=== PATIENT | female | born 1980 | race Caucasian/White ===

== ENCOUNTER 2016-06-29 09:55 | Outpatient (CLI) ==
[2016-04-29 19:01] VITALS: BMI 30.1
--- NOTE | 2016-06-29 11:07 | MAMMO ---
EXAM: Digital diagnostic bilateral mammogram and left breast ultrasound HISTORY: Breast lump COMPARISON: None FINDINGS: Digital MLO and CC views of the right and left breast were performed. There are scattered fibrogla ndular densities. There are bilateral benign intramammary lymph nodes. There is no evidence for ma ss, asymmetry, distortion, or suspicious calcifications in either breast. Ultrasound left breast was performed in the areas of palpable abnormality, at the 4 o'clock, 6 o'aimee ck, and 10 o'clock position, as directed by the patient and clinician. No focal sonographic abnorma lity is identified. No mass or cyst identified. IMPRESSION: No mammographic evidence of malignancy in the right or left breast. Negative left breast ultrasound . Clinical follow-up recommended. BIRADS category 2, benign
== END 2016-06-29 09:56 | disposition home or self-care (01) ==
LOC: RAD 09:55
PROVIDERS: ATTEND Physician Assistant
DX: N63 Unspecified lump in breast (principal)

== ENCOUNTER 2016-07-01 19:30 | Emergency (ER) ==
[2016-07-01 19:30] VITALS: BMI 30.1
[2016-07-01 19:40] VITALS: BP 135/101; TEMP 97.5
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
== END 2016-07-01 20:05 | disposition home or self-care (01) ==
LOC: ED 19:30
DX: K04.7 Periapical abscess without sinus (principal)
CPT/HCPCS: 99282

== ENCOUNTER 2016-08-20 12:48 | Emergency (ER) ==
[2016-08-20 12:48] VITALS: BMI 30.1
[2016-08-20 12:59] VITALS: BP 127/86; TEMP 98.1
[2016-08-20] MEDS ORDERED: DECADRON 4 MG/ML SDV IM STA (14:47)
[2016-08-20] MEDS ORDERED: BENADRYL IM STA (14:47)
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
== END 2016-08-20 15:21 | disposition home or self-care (01) ==
LOC: ED 12:48
DX: R21 Rash and other nonspecific skin eruption (principal); L29.9 Pruritus, unspecified
CPT/HCPCS: 96372; 99282

== ENCOUNTER 2016-09-23 22:08 | Emergency (ER) ==
[2016-09-23 22:21] VITALS: BMI 29.5
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
--- NOTE | 2016-09-23 23:04 | DI ---
Exam: Right shoulder two-view History: Injury and pain Findings / impression: No bony or articular abnormality of the right shoulder. Normal exam.
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
[2016-09-23] MEDS ORDERED: TORADOL IM STA (23:17)
[2016-09-24 00:33] VITALS: BP 140/82; TEMP 98.1
== END 2016-09-23 23:58 | disposition home or self-care (01) ==
LOC: ED 22:08
DX: S20.219A Contusion of unspecified front wall of thorax, initial encounter (principal); V86.99XA Unspecified occupant of other special all-terrain or other off-road motor vehicle injured in nontraffic accident, initial encounter
CPT/HCPCS: 96372; 99283

== ENCOUNTER 2016-11-05 19:45 | Emergency (ER) ==
[2016-11-05 19:51] VITALS: BP 143/105; TEMP 98.8; BMI 29.4
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
== END 2016-11-05 20:11 | disposition home or self-care (01) ==
LOC: ED 19:45
DX: N75.0 Cyst of Bartholin's gland (principal)
CPT/HCPCS: 99282

== ENCOUNTER 2016-12-22 15:32 | Observation (INO) ==
[2016-12-22 16:04] LABS: BILIRUBIN,URINE 3+ (NEGATIVE); KETONES,URINE 2+ (NEGATIVE); LEUKOCYTE ESTERASE ,URINE 3+ (NEGATIVE); NITRITE,URINE Positive (NEGATIVE); PH,URINE 8.5 (5-9); PROTEIN,URINE 3+ (NEGATIVE); URINE, BLOOD 3+ (NEGATIVE)
[2016-12-22 16:05] LABS: BASOPHILS % (AUTO) 0.1 % (0.0-3.0); EOSINOPHILS # (AUTO) 0.1 K/ul (0.0-0.7); EOSINOPHILS % (AUTO) 0.6 % (0.0-7.0); HEMATOCRIT 38.4 % (37.0-47.0); HEMOGLOBIN 13.1 g/dl (12.0-16.0); IMMATURE GRANULOCYTE % (AUTO) 0.3 % (0.0-5.0); LYMPHOCYTES % (AUTO) 14.2 (10.0-50.0); MEAN CORPUSCULAR HGB CONC 34.1 (31.8-35.4); MONOCYTES # (AUTO) 0.8 K/uL (0.4-2.0); MONOCYTES % (AUTO) 6.1 (0-10); NEUTROPHILS # (AUTO) 10.9 K/ul (2.0-6.9); NEUTROPHILS % (AUTO) 78.7; PLATELET COUNT 294 10^3/uL (140-440); RED BLOOD COUNT 4.52 10^6/ul (4.20-5.40); WHITE BLOOD COUNT 13.85 K/ul (4.6-10.2)
[2016-12-22 16:07] LABS: ADD URINE MICROSCOPIC YES; URINE PREGNANCY INTERNAL QC INTERNAL QC VALID
[2016-12-22 16:21] LABS: PARTIAL THROMBOPLASTIN TIME 24.4 SEC (23.9-40.0); PROTHROMBIN TIME 10.2 SEC (9.3-11.0)
[2016-12-22 16:27] LABS: ALBUMIN 3.9 g/dL (3.4-5.0); ALBUMIN/GLOBULIN RATIO 1.26; ANION GAP 14.6; BILIRUBIN,TOTAL 0.46 mg/dL (0.00-1.20); BUN/CREATININE RATIO 8.97; CALCIUM 9.8 mg/dL (8.2-10.2); CREATININE 0.78 mg/dL (0.60-1.30); POTASSIUM 3.6 mmol/L (3.5-5.10)
--- NOTE | 2016-12-22 16:33 | CT ---
EXAM: CT abdomen and pelvis without contrast. HISTORY: Abdominal pain. TECHNIQUE: Multi-slice transaxial helical CT. Coronal and sagittal reformatons were performed. COMPARISON: CT chest 09/23/2016 FINDINGS: The heart is normal in size. The lung bases are clear. Evaluation of the solid organs is limited without IV contrast. The gallbladder has been removed. T he spleen is normal in size. No evidence of renal calculus or hydronephrosis is seen. No evidence of intrahepatic biliary ductal dilation is seen. The pancreas and adrenals appear grossly unremarka ble within the confines of a noncontrast exam. The bowel is not dilated. The urinary bladder and the uterus appear grossly unremarkable. No eviden ce of free fluid in the abdomen pelvis is seen. The appendix is not clearly identified. No dilated tubular structures in the right lower quadrant are seen. No retroperitoneal adenopathy is seen. Bi lateral L5 pars defects are present. There is minimal anterior listhesis of L5 and S1. IMPRESSION: 1. No acute abdominal findings. 2. No hydronephrosis, bowel obstruction, or intra-abdominal inflammation. 3. Appendix not clearly identified. No dilated tubular structure in the right lower quadrant is se en. 4. Bilateral L5 pars defects with minimal anterior listhesis of L5 on S1. 5. Cholecystectomy.
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
[2016-12-22] MEDS ORDERED: VANCOMYCIN 1 GM in SODIUM CHLORIDE 250 ML IV STA (16:52)
[2016-12-22] MEDS: SODIUM CHLORIDE 1,800 ML IV SCH (17:04)
[2016-12-22 18:53] VITALS: BMI 29.9
[2016-12-23] MEDS: SODIUM CHLORIDE 1,800 ML IV SCH ×2 (02:10→07:19)
[2016-12-23 04:45] LABS: BASOPHILS % (AUTO) 0.1 % (0.0-3.0); EOSINOPHILS # (AUTO) 0.2 K/ul (0.0-0.7); EOSINOPHILS % (AUTO) 2.2 % (0.0-7.0); HEMATOCRIT 35.1 % (37.0-47.0); HEMOGLOBIN 11.8 g/dl (12.0-16.0); IMMATURE GRANULOCYTE % (AUTO) 0.3 % (0.0-5.0); LYMPHOCYTES % (AUTO) 29.4 (10.0-50.0); MEAN CORPUSCULAR HEMOGLOBIN 28.7 pg (27.0-31.0); MEAN CORPUSCULAR HGB CONC 33.6 (31.8-35.4); MEAN CORPUSCULAR VOLUME 85.4 fl (81.0-99.0); MONOCYTES # (AUTO) 0.6 K/uL (0.4-2.0); MONOCYTES % (AUTO) 8.3 (0-10); NEUTROPHILS # (AUTO) 4.1 K/ul (2.0-6.9); NEUTROPHILS % (AUTO) 59.7; PLATELET COUNT 227 10^3/uL (140-440); RED BLOOD COUNT 4.11 10^6/ul (4.20-5.40)
[2016-12-23 05:05] LABS: ALBUMIN 3.2 g/dL (3.4-5.0); ALBUMIN/GLOBULIN RATIO 1.19; ANION GAP 12.6; BILIRUBIN,TOTAL 0.42 mg/dL (0.00-1.20); BUN/CREATININE RATIO 10.44; CALCIUM 8.5 mg/dL (8.2-10.2); CREATININE 0.67 mg/dL (0.60-1.30); POTASSIUM 3.6 mmol/L (3.5-5.10); TOTAL PROTEIN 5.9 g/dL (6.4-8.2)
[2016-12-23] MEDS: ZESTRIL PO SCH (08:21)
[2016-12-23] MEDS ORDERED: ROCEPHIN 1 GM in SODIUM CHLORIDE 100 ML IV ONE (08:22)
[2016-12-23] MEDS: SODIUM CHLORIDE 1,000 ML IV SCH ×3 (10:05→19:19)
[2016-12-23] MEDS: PYRIDIUM PO SCH ×2 (10:54→20:23)
[2016-12-23] MEDS: NORCO 5-325 PO PRN ×2 (10:54→20:37)
[2016-12-24 05:16] LABS: BASOPHILS % (AUTO) 0.2 % (0.0-3.0); EOSINOPHILS # (AUTO) 0.2 K/ul (0.0-0.7); EOSINOPHILS % (AUTO) 2.4 % (0.0-7.0); HEMATOCRIT 34.6 % (37.0-47.0); HEMOGLOBIN 11.8 g/dl (12.0-16.0); IMMATURE GRANULOCYTE % (AUTO) 0.3 % (0.0-5.0); LYMPHOCYTES # (AUTO) 2.6 K/uL (0.60-3.4); LYMPHOCYTES % (AUTO) 41.7 (10.0-50.0); MEAN CORPUSCULAR HEMOGLOBIN 29.6 pg (27.0-31.0); MEAN CORPUSCULAR HGB CONC 34.1 (31.8-35.4); MEAN CORPUSCULAR VOLUME 86.9 fl (81.0-99.0); MONOCYTES # (AUTO) 0.6 K/uL (0.4-2.0); MONOCYTES % (AUTO) 9.7 (0-10); NEUTROPHILS # (AUTO) 2.9 K/ul (2.0-6.9); NEUTROPHILS % (AUTO) 45.7; PLATELET COUNT 256 10^3/uL (140-440); RED BLOOD COUNT 3.98 10^6/ul (4.20-5.40); WHITE BLOOD COUNT 6.28 K/ul (4.6-10.2)
[2016-12-24 05:39] LABS: ALBUMIN 3.1 g/dL (3.4-5.0); ALBUMIN/GLOBULIN RATIO 1.15; ANION GAP 11.6; BILIRUBIN,TOTAL 0.2 mg/dL (0.00-1.20); BUN/CREATININE RATIO 11.26; CALCIUM 8.7 mg/dL (8.2-10.2); CREATININE 0.71 mg/dL (0.60-1.30); POTASSIUM 3.6 mmol/L (3.5-5.10); TOTAL PROTEIN 5.8 g/dL (6.4-8.2)
[2016-12-24] MEDS: ZESTRIL PO SCH (09:11)
[2016-12-24] MEDS: PYRIDIUM PO SCH (09:11)
[2016-12-24 09:55] VITALS: BP 101/65; TEMP 98.8
--- NOTE | 2016-12-24 13:18 | PN ---
DATE OF SERVICE: 12/23/16 SUBJECTIVE: The patient was admitted with a UTI yesterday. No fever. Still has suprapubic pain and the right lower back pain. No fever since admission. REVIEW OF SYSTEMS: CONSTITUTIONAL: No fever, no chills. HEENT: Normal. ENDOCRINE: No weight gain, no weight loss. CVS: No angina symptoms. No CHF symptoms. No palpitations. No atypical chest pain for CAD. No shortness of breath. No PND, no orthopnea. RESPIRATORY: No cough, no hemoptysis. GI: No nausea, no vomiting. No abdominal pain. : No hematuria. No polyuria. MUSCULOSKELETAL:. No joint swelling. PSYCHIATRIC: Not anxious. No depression. No suicidal thoughts. No homicidal thoughts. SKIN: Intact. No rash. PHYSICAL EXAMINATION: V/S: Blood pressure 116/72, respiratory 20, heart rate 81, temperature 97.9. HEENT: Normocephalic, atraumatic. Mucosa dry. Pallor positive. No icterus. NECK: Supple. No JVD, no carotid bruit. No lymphadenopathy. LUNGS: Clear to auscultation. No rales or rhonchi. HEART: S1, S2 normal. No S3. No murmur, gallop or regurgitation. ABDOMEN: Soft, Suprapubic tenderness present. Bowel sounds active. No rigidity. No rebound or guarding. Right and left CVA tenderness is present. EXTREMITIES: No clubbing, cyanosis or pedal edema. MUSCULOSKELETAL: No joint swelling. NEUROLOGIC: Awake, alert, oriented times three. No focal deficit. LYMPHATIC: No lymph nodes palpable. SKIN: Intact. LABS: WBC 6.90, hgb 11.8, hct 35.1, plt count 227, sodium 141, potassium 3.6, chloride 107, bicarb 25, BUN 7, creatinine 0.67. ASSESSMENT: 1. Acute pyelonephritis, questionable 2. UTI, organism gram negative rods. 3. DJD spine 4. Hypertension PLAN: 1. Rocephin 1 gram daily 2. IV fluids will decrease to 50 ml per hour 3. Followup on urine cultures. TIME SPENT: More than 30 minutes MTDD
--- NOTE | 2017-01-24 11:33 | HP ---
DATE OF SERVICE: 12/22/16 CHIEF COMPLAINT: Burning and frequency and urgency or urination, abdominal pain, back pain, nausea, fever and blood in the urine. Recently seen by the OBGYN for the bacterial vaginosis and Bartholin cyst. She was started on the Flagyl and it was getting better but now started with the burning and frequency or urination and back pain. She was seen by Emergency room physician Dr. Grady. Labs showed the left shift with the WBC of 13,000. PT INR was negative, CMP was negative. Urine was positive for the ketone, Nitrates positive, leukocyte esterase positive. CT of the abdomen and pelvis negative for the pyelonephritis but the patient did have CVA tenderness. At that time the patient was admitted to the hospital for the clinical diagnosis of acute pyelonephritis with left sided shift of the WBC and for IV fluids and IV hydration and antibiotics. REVIEW OF SYSTEMS: CONSTITUTIONAL: No fever, no chills. HEENT: Normal. ENDOCRINE: No weight gain; no weight loss. CVS: No chest pain. No PND, no orthopnea. No shortness of breath. No PND, no orthopnea. RESPIRATORY: No cough, no congestion. No hemoptysis. GI: No nausea, no vomiting. No abdominal pain. No melena. : No hematuria. No polyuria. MUSCULOSKELETAL: No joint swelling. PSYCHIATRIC: Not anxious. No depression. No suicidal thoughts. No homicidal thoughts. SKIN: Intact, no open lesions. 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 Family history is significant for the throat cancer and hypertension. MEDICATIONS: Lisinopril Hydrocodone Clonazepam ALLERGIES: Penicillin PHYSICAL EXAMINATION: V/S: Blood pressure 130/93, respiratory rate 20, heart rate 97, temperature 98.0. GENERAL: Sick looking lady laying in the bed and not in any distress. HEENT: Atraumatic, normocephalic. No scleral icterus. Mucosa dry. NECK: Supple. No JVD, no bruit. No lymphadenopathy. No thyromegaly. HEART: S1, S2 normal. No murmur. No cyanosis or clubbing. No ascites. LUNGS: Bilateral entry is decreased and clear to auscultation. No rales or rhonchi. ABDOMEN: Soft, nontender. Bowel sounds are active. Bilateral CVA tenderness. No rigidity or guarding. EXTREMITIES: No cyanosis, clubbing or pedal edema. MUSCULOSKELETAL: Normal joints, no swelling. NEUROLOGIC: The patient is awake and alert. SKIN: Intact; no open lesions. LYMPHATIC: No lymph nodes palpable. LABS: WBC 13.85, hgb 13.1, hct 38.4, plt count 294, sodium 141, potassium 3.6, chloride 103, bicarb 27, BUN 7, creatinine 0.78. Urine showed the ketones positive, nitrates positive and leukocyte esterase positive. ASSESSMENT: 1. Clinically the patient has pyelonephritis with the left shift of the white count 2. Hypertension 3. Dyslipidemia 4. DJD spine 5. Osteoarthritis 6. Anxiety 7. Depression PLAN: 1. Admit the patient to the regular floor 2. CBC and CMP today and daily 3. Cardiac enzymes and troponin 4. IV fluids 5. Rocephin 1 gram daily 6. Pyridium 7. Continue the blood pressure medication. TIME SPENT: MORE THAN 70 minutes MTDD
--- NOTE | 2017-01-24 11:57 | DS ---
DATE OF SERVICE: 12/24/16 FINAL DIAGNOSIS: 1. Bilateral pyelonephritis clinical 2. UTI, e-coli positive not ESBL 3. Hypertension 4. Dyslipidemia 5. DJD spine 6. Osteoarthritis 7. Anxiety disorder 8. Depression 9. History of colitis 10.Ovarian cyst removed 11. Tubal ligation DISCHARGE INSTRUCTIONS: Discharge the patient home. Please have followup with the primary care provider as sooner as possible. Please takes some Probiotics and over the counter Probiotic medication as antibiotics can give the diarrhea. Continue the rest of the home medications. MEDICATIONS AT DISCHARGE: Clonazepam Hydrocodone Lisinopril NEW PRESCRIPTIONS: Macrobid 100mg twice a day for 7 days DIET INSTRUCTIONS: Low Cholesterol ACTIVITY: As much as tolerated. SMOKING: Former smoker DISEASE SPECIFIC EDUCATION: Urinary tract infection Blood infection Antibiotics and diarrhea been discussed. HOSPITAL COURSE: Susan Smith who is a 36 year old female came to the emergency room with the burning, frequency of urination and nausea feeling, bilateral lower back pain. She was admitted with the clinical pyelonephritis. White count was left shift with 13,000. IV antibiotic Rocephin was started with the IV fluids and continued home medication of hydrocodone. Gradually the patient started feeling better, afebrile. Meanwhile the urine grew e-coli which was sensitive to all the antibiotics. By third day the patient was up and about walking and her lower back kwok in improved. At that time she is discharged home on the antibiotics Macrobid and advised to take the antibiotic and finish the course. She will followup in the [facility] with in 4-5 days. TIME SPENT: MORE THAN 55 MINUTES MTDD
== END 2016-12-24 11:50 | disposition home or self-care (01) ==
LOC: ED 15:32 → MEDSURG B 16:56 → INTOOBSV 16:56 → UNDOADMIN 16:56 → UNDODISIN 12-24 11:50
PROVIDERS: ADMIT Emergency Medicine; ATTEND Emergency Medicine
DX: N10 Acute pyelonephritis (principal); N39.0 Urinary tract infection, site not specified; M54.5 Low back pain; R10.30 Lower abdominal pain, unspecified; B96.20 Unspecified Escherichia coli [E. coli] as the cause of diseases classified elsewhere; I10 Essential (primary) hypertension; E78.5 Hyperlipidemia, unspecified; M47.9 Spondylosis, unspecified; M19.90 Unspecified osteoarthritis, unspecified site; F41.8 Other specified anxiety disorders; Z87.19 Personal history of other diseases of the digestive system; Z98.51 Tubal ligation status; Z79.899 Other long term (current) drug therapy; Z16.11 Resistance to penicillins
CPT/HCPCS: 36415; 74176; 80053; 81001; 81025; 85025; 85610; 85730; 87086; 87186; 99223; 99233; 99239; 99284

== ENCOUNTER 2017-06-06 17:28 | Emergency (ER) ==
[2017-06-06 17:38] VITALS: BP 137/93; TEMP 99.7; BMI 33.6
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
== END 2017-06-06 19:30 | disposition home or self-care (01) ==
LOC: ED 17:28
DX: S16.1XXA Strain of muscle, fascia and tendon at neck level, initial encounter (principal); M25.611 Stiffness of right shoulder, not elsewhere classified; V89.2XXA Person injured in unspecified motor-vehicle accident, traffic, initial encounter
CPT/HCPCS: 99282

== ENCOUNTER 2017-10-06 20:52 | Emergency (ER) | payer OTHER ==
[2017-10-06 21:07] VITALS: BP 123/81; TEMP 99.1; BMI 35.4
[2017-10-06] MEDS ORDERED: CLEOCIN PO STA (21:18)
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
== END 2017-10-06 21:40 | disposition home or self-care (01) ==
LOC: ED 20:52
DX: N75.0 Cyst of Bartholin's gland (principal)
CPT/HCPCS: 99282

== ENCOUNTER 2017-12-13 09:52 | Outpatient (CLI) | END 2017-12-13 09:53 | disposition home or self-care (01) | LOC: CAR 09:52 | PROVIDERS: ATTEND Physician Assistant | DX: R00.8 Other abnormalities of heart beat (principal) | CPT/HCPCS: 93005; 93010 ==

== ENCOUNTER 2018-08-05 21:06 | Emergency (ER) ==
[2018-08-05 21:19] VITALS: BP 148/86; TEMP 98.7; BMI 36.8
[2018-08-05] MEDS: TORADOL IM STA (21:32)
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
--- NOTE | 2018-08-05 22:42 | CT ---
Exam: CT of the abdomen and pelvis without contrast History: Pelvic pain with radiation to the back Technique: [address] of the abdomen and pelvis without intravascular contrast FINDINGS: The lung bases are clear. No significant liver abnormality. The adrenals, pancreas and s pleen are unremarkable. The stomach and hiatus are unremarkable.Prior cholecystectomy. Kidneys and proximal collecting system are unremarkable. The appendix is not seen. Bowel loops demonstrate norm al caliber. No inflamatory change seen in the mesentery or retroperitoneum. Vascular structures marcelle ear normal by noncontrast CT. Pelvic genitourinary structures appear normal. Pelvic bowel loops are unremarkable. No inflammatory change in the pelvic fat. No acute abnormality of the abdominal or pelvic skeleton. Pars interarti cularis defects of L5. Impression: 1. No inflammatory process, bowel or urinary obstruction is seen. No acute findings of the abdomen or pelvis.
[2018-08-05] MEDS: FLAGYL PO STA (23:14)
== END 2018-08-05 23:20 | disposition home or self-care (01) ==
LOC: ED 21:06
DX: R10.9 Unspecified abdominal pain (principal); R11.0 Nausea; Z72.0 Tobacco use; N76.0 Acute vaginitis
CPT/HCPCS: 81001; 96372; 99283

== ENCOUNTER 2018-12-30 | Emergency (ER) | END 2018-12-30 19:57 | disposition home or self-care (01) | CPT/HCPCS: 99282 ==